=== PATIENT | female | born 1950 | race Caucasian/White ===

== ENCOUNTER 2019-11-29 14:11 | Outpatient (CLI) | payer MEDICARE, MEDICAID, SELFPAY ==
--- NOTE | 2019-11-29 | XR_ITS ---
WS: [id number] LATERAL LUMBAR SPINE: 3 view. Lateral radiographs are performed in upright neutral, flexion and extension to the patient's toleranc e. HISTORY: LOW BACK PAIN COMPARISON: None available. Normal lumbar alignment. Disc spaces and vertebral body heights are normally maintained. No instabili ty with flexion or extension. Scattered plaque in aorta. XR/XR lumbar spine f/e only [id number] IMPRESSION: No lumbar spine instability.
--- NOTE | 2019-11-29 | MR_ITS ---
WS: [id number] MRI LUMBAR SPINE NONCONTRAST HISTORY: LOW BACK PAIN COMPARISON: None available. TECHNIQUE: Sagittal and axial multisequence imaging is submitted. Slight increase in cervical lordosis and thoracic kyphosis. Normal lumbar alignment. Mild disc desiccation at L5-S1. No marrow edema or fractures. Scattered T2 and T1 bright signal intensities throughout multiple vertebral bodies are probably heman giomas. Conus terminates normally at L1-2 disc level. L1-L2: Normal. L2-L3: Normal. L3-L4: Small amount of fluid in the facet joints bilaterally. Mild asymmetric disc bulging to the LEF T without nerve root encroachment. L4-L5: Mild annular disc bulging and small amount of fluid in the facet joints. Mild narrowing of the subarticular recesses. No significant stenosis. L5-S1: Mild annular disc bulging. Small disc osteophyte complex encroaching and abutting against the RIGHT S1 nerve root in the subarticular recess. Fat is been effaced surrounding the nerve root. Minim al encroachment upon the LEFT S1 nerve root. Facet joint cyst on the RIGHT extends posteriorly measur ing 7 mm. Bilateral facet joint fluid. Spleen is enlarged as preceded described measuring 15.6 cm in length. Bilateral renal cysts. MR/MR lumbar spine wo con* [id number] IMPRESSION: 1. 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 2. Mild bilateral subarticular recess stenosis at L4-5. 3. Stable splenomegaly and bilateral renal cysts.
== END 2019-11-29 14:12 | disposition home or self-care (01) ==
LOC: RADWPI 14:23
PROVIDERS: Family Provider Registered Nurse; PCP Registered Nurse; Visit Provider Nurse Practitioner
DX: M54.5 Low back pain (principal); M48.061 Spinal stenosis, lumbar region without neurogenic claudication; Q61.02 Congenital multiple renal cysts; R16.1 Splenomegaly, not elsewhere classified
CPT/HCPCS: 72120; 72148

== ENCOUNTER 2020-09-01 14:36 | Inpatient (IN) | payer MEDICARE, MEDICAID, SELFPAY ==
[2020-09-01 14:42] VITALS: BP 131/76; PULSE 117; RESP 18; TEMP 38.1; O2SAT 93; BMI 14.1
--- NOTE | 2020-09-01 14:49 | CTR_ITS ---
PROCEDURE INFORMATION: Exam: CT Head Without Contrast Exam date and time: 09/01/2020 4:29 PM Age: 69 years old Clinical indication: Altered mental status/memory loss; Patient HX: Unable to obtain history; Additional info: AMS TECHNIQUE: Imaging protocol: Computed tomography of the head without contrast. Radiation optimization: All CT scans at this facility use at least one of these dose optimization techniques: automated exposure control; mA and/or kV adjustment per patient size (includes targeted exams where dose is matched to clinical indication); or iterative reconstruction. COMPARISON: No relevant prior studies available. RADIATION DOSE METRICS: Total DLP (mGy-cm): 1434.05 FINDINGS: Brain: Mild parenchymal volume loss noted. There is decreased attenuation of the periventricular white matter, consistent with mild microangiopathic chronic white matter disease. No intracranial hemorrhage noted. No parenchymal edema identified. Cerebral ventricles: The ventricles are proportional to the sulci. No hydrocephalus is noted. Bones/joints: No fracture or other acute osseous abnormality. Paranasal sinuses: The paranasal sinuses, as demonstrated, appear clear. Mastoid air cells: The mastoid air cells are clear bilaterally. Soft tissues: The soft tissues appear unremarkable. CT/CT head wo con* [id number] IMPRESSION: No acute intracranial abnormality demonstrated. Radiation Dose CTDIVOL = (mGy): DLP = 1434.05 (mGy-cm)
--- NOTE | 2020-09-01 14:53 | ECG_ITS ---
[facility] Test Date: 2020-09-01 Pat Name: Maddy Crowley Department: Room: Gender: Female [employer]: : 1950 Requested By: Joseph Husain Order Number: [id number] Reading MD: LORI DU Measurements Intervals [place]s Rate: 123 P: 91 ID: [id number] QRS: 82 QRSD: 65 T: 74 QT: 355 QTc: 508 Interpretive Statements SINUS TACHYCARDIA WITH OCCASIONAL VENTRICULAR PREMATURE COMPLEXES VOLTAGE CRITERIA FOR LVH [MEETS CRITERIA IN ONE OF: R(aVL), S(V1), R(V5), R(V5/V6)+S(V1)] POSSIBLE SEPTAL MYOCARDIAL INFARCTION , OF INDETERMINATE AGE [30 ms Q WAVE IN V1/V2] No previous ECG available for comparison Electronically Signed On 09-01-2020 19:28:01 [employer] by LORI DU [email or web address]
--- NOTE | 2020-09-01 14:54 | W.ED.AMS ---
Documented by User: Joseph Aguirre DO 09/02/20 10:58 HPI - Altered Mental Status General: Chief Complaint: Seizure Stated Complaint: AMS/ SEIZURE LAST NIGHT Time Seen by Provider: 09/01/20 14:38 History of Present Illness: HPI narrative: 69-year-old female who presents to the emergency room with complaint of altered mental status. Family found her at home she was unresponsive curled in a position she does not respond to any verbal commands to me. She did not respond any questions from myself or the nursing staff. EMS said she was in a similar way states curled up in a position while being transported. She is prescribed Xanax and an antidepressant but also takes Dilaudid and several other medications that are not prescribed to her. She appears to be under the influence. MD complaint: altered mental status, confusion and decreased responsiveness Onset (ago): unknown Timing confirmed by: family member Severity: severe Consistency of symptoms: Constant Context: drug abuse and history of similar presentation Review of Systems General: Reports: ROS unobtainable due to medical condition PFSH ED PFSH: Medical History (Updated 09/01/20 @ 22:30 by Serjio Caldera MD) Anxiety Chronic pain disorder Emphysema/COPD Enrolled in chronic care management Essential hypertension Neuropathy Surgical History (Updated 09/01/20 @ 22:24 by Serjio Caldera MD) Hx of appendectomy Hx of tonsillectomy Hx of tubal ligation Social History Smoking and tobacco status: current every day smoker Alcohol intake: never Lives independently: No Physical Exam Const: COMMON NORMALS: no acute distress GENERAL APPEARANCE: cooperative and comfortable HENMT: COMMON NORMALS: normocephalic, atraumatic and hearing grossly normal bilaterally HEAD & SCALP: normocephalic and atraumatic Eye: COMMON NORMALS: Equal, round and reactive pupils present, EOMs intact bilaterally, conjunctivae normal and no scleral icterus CONJUNCTIVA: Yes conjunctivae normal PUPIL: Yes Equal, round and reactive pupils present Neck/C-Spine: COMMON NORMALS: no JVD Resp: COMMON NORMALS: normal respiratory effort, No retractions, No use of accessory muscles and clear to auscultation bilaterally AUSCULTATION: clear to auscultation bilaterally Cardio: COMMON NORMALS: no JVD, regular rate, regular rhythm and No murmurs present (Cardio) RATE: regular rate RHYTHM: regular rhythm GI: COMMON NORMALS: Soft to palpation and No hepatosplenomegaly present AUSCULTATION: Yes normoactive bowel sounds PALPATION: Yes Soft to palpation, No Tenderness to palpation present (GI), No Guarding due to palpation present (GI) and Yes No hepatosplenomegaly present Extremity: COMMON NORMALS: normal to inspection, capillary refill normal, no clubbing, cyanosis or edema, no calf tenderness and no pedal edema Skin: COMMON NORMALS: no rashes or lesions noted GENERAL SKIN EXAM: no rashes or lesions noted Course Vital Signs: Vital signs: Vital Signs Temperature 97.5 F L 09/02/20 05:00 Pulse Rate 85 09/02/20 08:40 Respiratory Rate 26 H 09/02/20 08:20 Blood Pressure 134/101 09/02/20 08:40 Pulse Oximetry 98 09/02/20 08:40 MDM - Altered Mental Status MDM Narrative: Medical decision making narrative: Patient encephalopathic on arrival. She is maintaining her airway she is still nonresponsive initial evaluation and labs ordered. Care turned over to Dr. Tolentino at change of shift. Lab Data: Labs: Lab Results 09/01/20 09/01/20 09/01/20 Range/Units 18:47 18:47 19:20 WBC (4.0-10.0) 10^3/ uL RBC (4.1-5.3) 10^6/u L Hgb (11.5-15.3) g/dL Hct (37.0-47.0) % MCV (81-99) fL MCH (28.0-34.0) pg MCHC (30.0-36.0) g/dL RDW (12.1-15.1) % Plt Count (130-400) 10^3/c mm MPV (7.4-10.4) fL Neut % (Auto) % Lymph % (Auto) % Catron % (Auto) % Eos % (Auto) % Baso % (Auto) % Neut # (Auto) (1.8-7.7) 10^3/u L Lymph # (Auto) (0.8-4.8) 10^3/u L Catron # (Auto) (0.2-0.9) 10^3/u L Eos # (Auto) (0.0-0.8) 10^3/u L Baso # (Auto) (0.0-0.1) 10^3/u L Nucleated RBC % (a uto) % Nucleated RBCs # /100WBC PT (12.1-14.9) SECO NDS INR (0.8-1.2) APTT (23.9-36.7) SECO NDS Specimen Type Sample Site ABG pH (7.35-7.45) ABG pCO2 (35-45) mmHg ABG pO2 (80.0-100.0) mmH g ABG HCO3 (22-26) mmol/L ABG Base Excess (-2.0-2.0) mmol/ L Alexis Test Hematocrit (37-47) % O2 Delivery Device O2 Liters/Min % Expansion Envelope Maker Hand ID Sodium (136-145) mmol/L Potassium (3.5-5.1) mmol/L Chloride (98-107) mmol/L Carbon Dioxide (22-29) mmol/L Anion Gap (5-19) BUN (8-23) mg/dL Creatinine (0.5-0.9) mg/dL GFR Calculation (90-130) mL/min Glucose (65-115) mg/dL Calculated Osmolal ity (285-295) mOsm/k g Lactic Acid (0.5-2.2) mmol/L Calcium (8.5-10.5) mg/dL Magnesium Cancelled Total Bilirubin (0.15-1.2) mg/dL AST (0-32) U/L ALT (0-33) U/L Alkaline Phosphata se (35-105) IU/L Creatine Kinase Cancelled Troponin T Baselin e (0-10) ng/L Troponin T 120 Min newtok (0-10) ng/L Delta Troponin T (0-10) ABS# Total Protein (6.6-8.7) g/dL Albumin (3.5-5.2) g/dL Globulin (1.3-4.6) g/dL Urine Color Yellow (Yellow) Urine Appearance Clear (CLEAR) Urine pH 6.5 (5-7) Ur Specific Gravit y 1.010 (1.005-1.030) Urine Protein 3+ H (Negative) Urine Glucose (UA) Norm (Normal) Urine Ketones 3+ H (Negative) Urine Blood 3+ H (Negative) Urine Nitrate Negative (Negative) Urine Bilirubin 1+ H (Negative) Urine Urobilinogen 1 H (Negative) mg/dL Ur Leukocyte [place] ase Negative (Negative) Urine RBC 5-10 H (0-2) /hpf Urine WBC 0-4 H (0-5) /hpf Ur Squamous Epith Cells 0-4 H (0-5) /hpf Amorphous Sediment Not Reportable Urine Bacteria 1+ H (NONE) /hpf Urine Mucus 3+ /hpf Salicylates (3-10) mg/dL Urine Opiates Scre en Positive H (Negative) ng/mL Acetaminophen (10-30) ug/mL Ur Barbiturates Sc reen Negative (Negative) ng/mL Ur Phencyclidine S crn Negative (Negative) ng/mL Ur Amphetamines Sc reen Negative (Negative) ng/mL U Benzodiazepines Scrn Positive H (Negative) ng/mL Urine Cocaine Scre en Negative (Negative) ng/mL U Marijuana (THC) Screen Positive H (Negative) ng/mL Ethyl Alcohol (0-10) mg/dL Influenza Type A A g (Negative) Influenza Type B A g (Negative) SARS-CoV-2 Ag (Rap id) (Negative) 09/01/20 09/01/20 09/01/20 Range/Units 19:34 19:34 19:34 WBC 4.1 (4.0-10.0) 10^3/ uL RBC 3.81 L (4.1-5.3) 10^6/u L Hgb 11.2 L (11.5-15.3) g/dL Hct 33.1 L (37.0-47.0) % MCV 86.9 (81-99) fL MCH 29.4 (28.0-34.0) pg MCHC 33.8 (30.0-36.0) g/dL RDW 13.1 (12.1-15.1) % Plt Count 92 L (130-400) 10^3/c mm MPV 10.0 (7.4-10.4) fL Neut % (Auto) 63.1 % Lymph % (Auto) 28.1 % Catron % (Auto) 8.6 % Eos % (Auto) 0.0 % Baso % (Auto) 0.0 % Neut # (Auto) 2.55 (1.8-7.7) 10^3/u L Lymph # (Auto) 1.1 (0.8-4.8) 10^3/u L Catron # (Auto) 0.4 (0.2-0.9) 10^3/u L Eos # (Auto) 0.0 (0.0-0.8) 10^3/u L Baso # (Auto) 0.0 (0.0-0.1) 10^3/u L Nucleated RBC % (a uto) 0 % Nucleated RBCs # 0.0 /100WBC PT 15.00 H (12.1-14.9) SECO NDS INR 1.15 (0.8-1.2) APTT 25.5 (23.9-36.7) SECO NDS Specimen Type Sample Site ABG pH (7.35-7.45) ABG pCO2 (35-45) mmHg ABG pO2 (80.0-100.0) mmH g ABG HCO3 (22-26) mmol/L ABG Base Excess (-2.0-2.0) mmol/ L Alexis Test Hematocrit (37-47) % O2 Delivery Device O2 Liters/Min % Expansion Envelope Maker Hand ID Sodium 141 (136-145) mmol/L Potassium 3.2 L (3.5-5.1) mmol/L Chloride 88 L (98-107) mmol/L Carbon Dioxide 39 H (22-29) mmol/L Anion Gap 17.2 (5-19) BUN 22 (8-23) mg/dL Creatinine 0.5 (0.5-0.9) mg/dL GFR Calculation 123.1 (90-130) mL/min Glucose 91 (65-115) mg/dL Calculated Osmolal ity 295 (285-295) mOsm/k g Lactic Acid (0.5-2.2) mmol/L Calcium 9.7 (8.5-10.5) mg/dL Magnesium 1.6 L Total Bilirubin 1.4 H (0.15-1.2) mg/dL AST 60 H (0-32) U/L ALT 22 (0-33) U/L Alkaline Phosphata se 56 (35-105) IU/L Creatine Kinase 438 H* Troponin T Baselin e (0-10) ng/L Troponin T 120 Min newtok (0-10) ng/L Delta Troponin T (0-10) ABS# Total Protein 7.2 (6.6-8.7) g/dL Albumin 4.6 (3.5-5.2) g/dL Globulin 2.6 (1.3-4.6) g/dL Urine Color (Yellow) Urine Appearance (CLEAR) Urine pH (5-7) Ur Specific Gravit y (1.005-1.030) Urine Protein (Negative) Urine Glucose (UA) (Normal) Urine Ketones (Negative) Urine Blood (Negative) Urine Nitrate (Negative) Urine Bilirubin (Negative) Urine Urobilinogen (Negative) mg/dL Ur Leukocyte [place] ase (Negative) Urine RBC (0-2) /hpf Urine WBC (0-5) /hpf Ur Squamous Epith Cells (0-5) /hpf Amorphous Sediment Urine Bacteria (NONE) /hpf Urine Mucus /hpf Salicylates < 0.3 L (3-10) mg/dL Urine Opiates Scre en (Negative) ng/mL Acetaminophen < 5.0 L (10-30) ug/mL Ur Barbiturates Sc reen (Negative) ng/mL Ur Phencyclidine S crn (Negative) ng/mL Ur Amphetamines Sc reen (Negative) ng/mL U Benzodiazepines Scrn (Negative) ng/mL Urine Cocaine Scre en (Negative) ng/mL U Marijuana (THC) Screen (Negative) ng/mL Ethyl Alcohol < 10 (0-10) mg/dL Influenza Type A A g (Negative) Influenza Type B A g (Negative) SARS-CoV-2 Ag (Rap id) (Negative) 09/01/20 09/01/20 09/01/20 Range/Units 19:34 19:34 19:55 WBC (4.0-10.0) 10^3/ uL RBC (4.1-5.3) 10^6/u L Hgb (11.5-15.3) g/dL Hct (37.0-47.0) % MCV (81-99) fL MCH (28.0-34.0) pg MCHC (30.0-36.0) g/dL RDW (12.1-15.1) % Plt Count (130-400) 10^3/c mm MPV (7.4-10.4) fL Neut % (Auto) % Lymph % (Auto) % Catron % (Auto) % Eos % (Auto) % Baso % (Auto) % Neut # (Auto) (1.8-7.7) 10^3/u L Lymph # (Auto) (0.8-4.8) 10^3/u L Catron # (Auto) (0.2-0.9) 10^3/u L Eos # (Auto) (0.0-0.8) 10^3/u L Baso # (Auto) (0.0-0.1) 10^3/u L Nucleated RBC % (a uto) % Nucleated RBCs # /100WBC PT (12.1-14.9) SECO NDS INR (0.8-1.2) APTT (23.9-36.7) SECO NDS Specimen Type Sample Site ABG pH (7.35-7.45) ABG pCO2 (35-45) mmHg ABG pO2 (80.0-100.0) mmH g ABG HCO3 (22-26) mmol/L ABG Base Excess (-2.0-2.0) mmol/ L Alexis Test Hematocrit (37-47) % O2 Delivery Device O2 Liters/Min % Expansion Envelope Maker Hand ID Sodium (136-145) mmol/L Potassium (3.5-5.1) mmol/L Chloride (98-107) mmol/L Carbon Dioxide (22-29) mmol/L Anion Gap (5-19) BUN (8-23) mg/dL Creatinine (0.5-0.9) mg/dL GFR Calculation (90-130) mL/min Glucose (65-115) mg/dL Calculated Osmolal ity (285-295) mOsm/k g Lactic Acid 1.7 (0.5-2.2) mmol/L Calcium (8.5-10.5) mg/dL Magnesium Total Bilirubin (0.15-1.2) mg/dL AST (0-32) U/L ALT (0-33) U/L Alkaline Phosphata se (35-105) IU/L Creatine Kinase Troponin T Baselin e 138 H* (0-10) ng/L Troponin T 120 Min newtok (0-10) ng/L Delta Troponin T (0-10) ABS# Total Protein (6.6-8.7) g/dL Albumin (3.5-5.2) g/dL Globulin (1.3-4.6) g/dL Urine Color (Yellow) Urine Appearance (CLEAR) Urine pH (5-7) Ur Specific Gravit y (1.005-1.030) Urine Protein (Negative) Urine Glucose (UA) (Normal) Urine Ketones (Negative) Urine Blood (Negative) Urine Nitrate (Negative) Urine Bilirubin (Negative) Urine Urobilinogen (Negative) mg/dL Ur Leukocyte [place] ase (Negative) Urine RBC (0-2) /hpf Urine WBC (0-5) /hpf Ur Squamous Epith Cells (0-5) /hpf Amorphous Sediment Urine Bacteria (NONE) /hpf Urine Mucus /hpf Salicylates (3-10) mg/dL Urine Opiates Scre en (Negative) ng/mL Acetaminophen (10-30) ug/mL Ur Barbiturates Sc reen (Negative) ng/mL Ur Phencyclidine S crn (Negative) ng/mL Ur Amphetamines Sc reen (Negative) ng/mL U Benzodiazepines Scrn (Negative) ng/mL Urine Cocaine Scre en (Negative) ng/mL U Marijuana (THC) Screen (Negative) ng/mL Ethyl Alcohol (0-10) mg/dL Influenza Type A A g Negative (Negative) Influenza Type B A g Negative (Negative) SARS-CoV-2 Ag (Rap id) (Negative) 09/01/20 09/01/20 09/01/20 Range/Units 19:55 21:59 22:00 WBC (4.0-10.0) 10^3/ uL RBC (4.1-5.3) 10^6/u L Hgb (11.5-15.3) g/dL Hct (37.0-47.0) % MCV (81-99) fL MCH (28.0-34.0) pg MCHC (30.0-36.0) g/dL RDW (12.1-15.1) % Plt Count (130-400) 10^3/c mm MPV (7.4-10.4) fL Neut % (Auto) % Lymph % (Auto) % Catron % (Auto) % Eos % (Auto) % Baso % (Auto) % Neut # (Auto) (1.8-7.7) 10^3/u L Lymph # (Auto) (0.8-4.8) 10^3/u L Catron # (Auto) (0.2-0.9) 10^3/u L Eos # (Auto) (0.0-0.8) 10^3/u L Baso # (Auto) (0.0-0.1) 10^3/u L Nucleated RBC % (a uto) % Nucleated RBCs # /100WBC PT (12.1-14.9) SECO NDS INR (0.8-1.2) APTT (23.9-36.7) SECO NDS Specimen Type Arterial Sample Site Brachial, right ABG pH 7.42 (7.35-7.45) ABG pCO2 49.4 H (35-45) mmHg ABG pO2 63.9 L (80.0-100.0) mmH g ABG HCO3 32.2 H (22-26) mmol/L ABG Base Excess 6.8 H (-2.0-2.0) mmol/ L Alexis Test Pos Hematocrit 31.8 L (37-47) % O2 Delivery Device Nc O2 Liters/Min 4.0 % Expansion Envelope Maker Hand ID Jlg Sodium (136-145) mmol/L Potassium (3.5-5.1) mmol/L Chloride (98-107) mmol/L Carbon Dioxide (22-29) mmol/L Anion Gap (5-19) BUN (8-23) mg/dL Creatinine (0.5-0.9) mg/dL GFR Calculation (90-130) mL/min Glucose (65-115) mg/dL Calculated Osmolal ity (285-295) mOsm/k g Lactic Acid (0.5-2.2) mmol/L Calcium (8.5-10.5) mg/dL Magnesium Total Bilirubin (0.15-1.2) mg/dL AST (0-32) U/L ALT (0-33) U/L Alkaline Phosphata se (35-105) IU/L Creatine Kinase Troponin T Baselin e (0-10) ng/L Troponin T 120 Min newtok 109.4 H (0-10) ng/L Delta Troponin T -28.6 L (0-10) ABS# Total Protein (6.6-8.7) g/dL Albumin (3.5-5.2) g/dL Globulin (1.3-4.6) g/dL Urine Color (Yellow) Urine Appearance (CLEAR) Urine pH (5-7) Ur Specific Gravit y (1.005-1.030) Urine Protein (Negative) Urine Glucose (UA) (Normal) Urine Ketones (Negative) Urine Blood (Negative) Urine Nitrate (Negative) Urine Bilirubin (Negative) Urine Urobilinogen (Negative) mg/dL Ur Leukocyte [place] ase (Negative) Urine RBC (0-2) /hpf Urine WBC (0-5) /hpf Ur Squamous Epith Cells (0-5) /hpf Amorphous Sediment Urine Bacteria (NONE) /hpf Urine Mucus /hpf Salicylates (3-10) mg/dL Urine Opiates Scre en (Negative) ng/mL Acetaminophen (10-30) ug/mL Ur Barbiturates Sc reen (Negative) ng/mL Ur Phencyclidine S crn (Negative) ng/mL Ur Amphetamines Sc reen (Negative) ng/mL U Benzodiazepines Scrn (Negative) ng/mL Urine Cocaine Scre en (Negative) ng/mL U Marijuana (THC) Screen (Negative) ng/mL Ethyl Alcohol (0-10) mg/dL Influenza Type A A g (Negative) Influenza Type B A g (Negative) SARS-CoV-2 Ag (Rap id) Negative (Negative) Discharge Plan Discharge Patient Disposition: Admitted As Inpatient Admit Provider: Serjio Caldera Clinical Impression: Acute alteration in mental status, Acute non-ST elevation myocardial infarction (NSTEMI) Aspiration pneumonia Qualifiers: Aspiration pneumonia type: unspecified Laterality: right Lung location: lower lobe of lung Qualified Code(s): J69.0 - Pneumonitis due to inhalation of food and vomit Condition: Stable Referrals: Horace Zhong FNP [Primary Care Provider] - Discharge Date/Time: 09/02/20 00:49 Sign Out Sign Out Data: Patient Sign Out occurred on 09/01/20 at 18:56. Patient's care was discussed, and care was transferred from to Estelita Soumya [facility]. Coding Level of Care Code ED Hat Lining Blocker for Chg Fwd Exam Comprehensive Documented by User: Estelita Tineo 09/01/20 22:36 HPI - Altered Mental Status General: Chief Complaint: Seizure Stated Complaint: AMS/ SEIZURE LAST NIGHT Time Seen by Provider: 09/01/20 14:38 PFSH ED PFSH: Medical History (Updated 09/01/20 @ 22:30 by Serjio Caldera MD) Anxiety Chronic pain disorder Emphysema/COPD Enrolled in chronic care management Essential hypertension Neuropathy Surgical History (Updated 09/01/20 @ 22:24 by Serjio Caldera MD) Hx of appendectomy Hx of tonsillectomy Hx of tubal ligation Social History Smoking and tobacco status: current every day smoker Alcohol intake: never Lives independently: No Course Vital Signs: Vital signs: Vital Signs Temperature 97.5 F L 09/02/20 05:00 Pulse Rate 85 09/02/20 08:40 Respiratory Rate 26 H 09/02/20 08:20 Blood Pressure 134/101 09/02/20 08:40 Pulse Oximetry 98 09/02/20 08:40 MDM - Altered Mental Status MDM Narrative: Medical decision making narrative: 1901 -patient turned over to me at change of shift from Dr. Aguirre. Please see his note for his history, physical exam medical decision-making notes. On my exam the patient is still encephalopathic. She performs purposeful movements when desired to make her self comfortable in bed but does not talk. Her GCS is 9 at this time. Vital signs are stable. We will continue with work-up set forward by Dr. Aguirre but I have added further labs, the patient apparently has a fever. 2050 -Case endorsed to Dr. Caldera. Patient's mental status is believed to be change secondary to illicit substances but there is possible aspiration on her chest x-ray and an elevation in her cardiac enzymes which could all be consistent with NSTEMI. Meningitis/encephalitis is also a possibility for her altered mental status and slight fever. Dr. Calderon wants to move forward with treating her for pneumonia and UTI and wants to hold off an LP at this time. At this time it would be very difficult to perform an LP as the patient is not cooperative and she would have to be sedated further which I am afraid would necessitating us having to put her on a ventilator to keep her still. At this time the patient is maintaining her airway with a GCS of 9. I believe when she has metabolized these medications were all she will become more alert. We have also treated her fever which should help. Further care will be dictated by Dr. Caldera. The patient does not demonstrate any sign of nuchal rigidity or meningismus at this time. Lab Data: Attestation: I reviewed the patient's lab results. Labs: Lab Results 09/01/20 09/01/20 09/01/20 Range/Units 18:47 18:47 19:20 WBC (4.0-10.0) 10^3/ uL RBC (4.1-5.3) 10^6/u L Hgb (11.5-15.3) g/dL Hct (37.0-47.0) % MCV (81-99) fL MCH (28.0-34.0) pg MCHC (30.0-36.0) g/dL RDW (12.1-15.1) % Plt Count (130-400) 10^3/c mm MPV (7.4-10.4) fL Neut % (Auto) % Lymph % (Auto) % Catron % (Auto) % Eos % (Auto) % Baso % (Auto) % Neut # (Auto) (1.8-7.7) 10^3/u L Lymph # (Auto) (0.8-4.8) 10^3/u L Catron # (Auto) (0.2-0.9) 10^3/u L Eos # (Auto) (0.0-0.8) 10^3/u L Baso # (Auto) (0.0-0.1) 10^3/u L Nucleated RBC % (a uto) % Nucleated RBCs # /100WBC PT (12.1-14.9) SECO NDS INR (0.8-1.2) APTT (23.9-36.7) SECO NDS Specimen Type Sample Site ABG pH (7.35-7.45) ABG pCO2 (35-45) mmHg ABG pO2 (80.0-100.0) mmH g ABG HCO3 (22-26) mmol/L ABG Base Excess (-2.0-2.0) mmol/ L Alexis Test Hematocrit (37-47) % O2 Delivery Device O2 Liters/Min % Expansion Envelope Maker Hand ID Sodium (136-145) mmol/L Potassium (3.5-5.1) mmol/L Chloride (98-107) mmol/L Carbon Dioxide (22-29) mmol/L Anion Gap (5-19) BUN (8-23) mg/dL Creatinine (0.5-0.9) mg/dL GFR Calculation (90-130) mL/min Glucose (65-115) mg/dL Calculated Osmolal ity (285-295) mOsm/k g Lactic Acid (0.5-2.2) mmol/L Calcium (8.5-10.5) mg/dL Magnesium Cancelled Total Bilirubin (0.15-1.2) mg/dL AST (0-32) U/L ALT (0-33) U/L Alkaline Phosphata se (35-105) IU/L Creatine Kinase Cancelled Troponin T Baselin e (0-10) ng/L Troponin T 120 Min newtok (0-10) ng/L Delta Troponin T (0-10) ABS# Total Protein (6.6-8.7) g/dL Albumin (3.5-5.2) g/dL Globulin (1.3-4.6) g/dL Urine Color Yellow (Yellow) Urine Appearance Clear (CLEAR) Urine pH 6.5 (5-7) Ur Specific Gravit y 1.010 (1.005-1.030) Urine Protein 3+ H (Negative) Urine Glucose (UA) Norm (Normal) Urine Ketones 3+ H (Negative) Urine Blood 3+ H (Negative) Urine Nitrate Negative (Negative) Urine Bilirubin 1+ H (Negative) Urine Urobilinogen 1 H (Negative) mg/dL Ur Leukocyte [place] ase Negative (Negative) Urine RBC 5-10 H (0-2) /hpf Urine WBC 0-4 H (0-5) /hpf Ur Squamous Epith Cells 0-4 H (0-5) /hpf Amorphous Sediment Not Reportable Urine Bacteria 1+ H (NONE) /hpf Urine Mucus 3+ /hpf Salicylates (3-10) mg/dL Urine Opiates Scre en Positive H (Negative) ng/mL Acetaminophen (10-30) ug/mL Ur Barbiturates Sc reen Negative (Negative) ng/mL Ur Phencyclidine S crn Negative (Negative) ng/mL Ur Amphetamines Sc reen Negative (Negative) ng/mL U Benzodiazepines Scrn Positive H (Negative) ng/mL Urine Cocaine Scre en Negative (Negative) ng/mL U Marijuana (THC) Screen Positive H (Negative) ng/mL Ethyl Alcohol (0-10) mg/dL Influenza Type A A g (Negative) Influenza Type B A g (Negative) SARS-CoV-2 Ag (Rap id) (Negative) 09/01/20 09/01/20 09/01/20 Range/Units 19:34 19:34 19:34 WBC 4.1 (4.0-10.0) 10^3/ uL RBC 3.81 L (4.1-5.3) 10^6/u L Hgb 11.2 L (11.5-15.3) g/dL Hct 33.1 L (37.0-47.0) % MCV 86.9 (81-99) fL MCH 29.4 (28.0-34.0) pg MCHC 33.8 (30.0-36.0) g/dL RDW 13.1 (12.1-15.1) % Plt Count 92 L (130-400) 10^3/c mm MPV 10.0 (7.4-10.4) fL Neut % (Auto) 63.1 % Lymph % (Auto) 28.1 % Catron % (Auto) 8.6 % Eos % (Auto) 0.0 % Baso % (Auto) 0.0 % Neut # (Auto) 2.55 (1.8-7.7) 10^3/u L Lymph # (Auto) 1.1 (0.8-4.8) 10^3/u L Catron # (Auto) 0.4 (0.2-0.9) 10^3/u L Eos # (Auto) 0.0 (0.0-0.8) 10^3/u L Baso # (Auto) 0.0 (0.0-0.1) 10^3/u L Nucleated RBC % (a uto) 0 % Nucleated RBCs # 0.0 /100WBC PT 15.00 H (12.1-14.9) SECO NDS INR 1.15 (0.8-1.2) APTT 25.5 (23.9-36.7) SECO NDS Specimen Type Sample Site ABG pH (7.35-7.45) ABG pCO2 (35-45) mmHg ABG pO2 (80.0-100.0) mmH g ABG HCO3 (22-26) mmol/L ABG Base Excess (-2.0-2.0) mmol/ L Alexis Test Hematocrit (37-47) % O2 Delivery Device O2 Liters/Min % Expansion Envelope Maker Hand ID Sodium 141 (136-145) mmol/L Potassium 3.2 L (3.5-5.1) mmol/L Chloride 88 L (98-107) mmol/L Carbon Dioxide 39 H (22-29) mmol/L Anion Gap 17.2 (5-19) BUN 22 (8-23) mg/dL Creatinine 0.5 (0.5-0.9) mg/dL GFR Calculation 123.1 (90-130) mL/min Glucose 91 (65-115) mg/dL Calculated Osmolal ity 295 (285-295) mOsm/k g Lactic Acid (0.5-2.2) mmol/L Calcium 9.7 (8.5-10.5) mg/dL Magnesium 1.6 L Total Bilirubin 1.4 H (0.15-1.2) mg/dL AST 60 H (0-32) U/L ALT 22 (0-33) U/L Alkaline Phosphata se 56 (35-105) IU/L Creatine Kinase 438 H* Troponin T Baselin e (0-10) ng/L Troponin T 120 Min newtok (0-10) ng/L Delta Troponin T (0-10) ABS# Total Protein 7.2 (6.6-8.7) g/dL Albumin 4.6 (3.5-5.2) g/dL Globulin 2.6 (1.3-4.6) g/dL Urine Color (Yellow) Urine Appearance (CLEAR) Urine pH (5-7) Ur Specific Gravit y (1.005-1.030) Urine Protein (Negative) Urine Glucose (UA) (Normal) Urine Ketones (Negative) Urine Blood (Negative) Urine Nitrate (Negative) Urine Bilirubin (Negative) Urine Urobilinogen (Negative) mg/dL Ur Leukocyte [place] ase (Negative) Urine RBC (0-2) /hpf Urine WBC (0-5) /hpf Ur Squamous Epith Cells (0-5) /hpf Amorphous Sediment Urine Bacteria (NONE) /hpf Urine Mucus /hpf Salicylates < 0.3 L (3-10) mg/dL Urine Opiates Scre en (Negative) ng/mL Acetaminophen < 5.0 L (10-30) ug/mL Ur Barbiturates Sc reen (Negative) ng/mL Ur Phencyclidine S crn (Negative) ng/mL Ur Amphetamines Sc reen (Negative) ng/mL U Benzodiazepines Scrn (Negative) ng/mL Urine Cocaine Scre en (Negative) ng/mL U Marijuana (THC) Screen (Negative) ng/mL Ethyl Alcohol < 10 (0-10) mg/dL Influenza Type A A g (Negative) Influenza Type B A g (Negative) SARS-CoV-2 Ag (Rap id) (Negative) 09/01/20 09/01/20 09/01/20 Range/Units 19:34 19:34 19:55 WBC (4.0-10.0) 10^3/ uL RBC (4.1-5.3) 10^6/u L Hgb (11.5-15.3) g/dL Hct (37.0-47.0) % MCV (81-99) fL MCH (28.0-34.0) pg MCHC (30.0-36.0) g/dL RDW (12.1-15.1) % Plt Count (130-400) 10^3/c mm MPV (7.4-10.4) fL Neut % (Auto) % Lymph % (Auto) % Catron % (Auto) % Eos % (Auto) % Baso % (Auto) % Neut # (Auto) (1.8-7.7) 10^3/u L Lymph # (Auto) (0.8-4.8) 10^3/u L Catron # (Auto) (0.2-0.9) 10^3/u L Eos # (Auto) (0.0-0.8) 10^3/u L Baso # (Auto) (0.0-0.1) 10^3/u L Nucleated RBC % (a uto) % Nucleated RBCs # /100WBC PT (12.1-14.9) SECO NDS INR (0.8-1.2) APTT (23.9-36.7) SECO NDS Specimen Type Sample Site ABG pH (7.35-7.45) ABG pCO2 (35-45) mmHg ABG pO2 (80.0-100.0) mmH g ABG HCO3 (22-26) mmol/L ABG Base Excess (-2.0-2.0) mmol/ L Alexis Test Hematocrit (37-47) % O2 Delivery Device O2 Liters/Min % Expansion Envelope Maker Hand ID Sodium (136-145) mmol/L Potassium (3.5-5.1) mmol/L Chloride (98-107) mmol/L Carbon Dioxide (22-29) mmol/L Anion Gap (5-19) BUN (8-23) mg/dL Creatinine (0.5-0.9) mg/dL GFR Calculation (90-130) mL/min Glucose (65-115) mg/dL Calculated Osmolal ity (285-295) mOsm/k g Lactic Acid 1.7 (0.5-2.2) mmol/L Calcium (8.5-10.5) mg/dL Magnesium Total Bilirubin (0.15-1.2) mg/dL AST (0-32) U/L ALT (0-33) U/L Alkaline Phosphata se (35-105) IU/L Creatine Kinase Troponin T Baselin e 138 H* (0-10) ng/L Troponin T 120 Min [place]tok (0-10) ng/L Delta Troponin T (0-10) ABS# Total Protein (6.6-8.7) g/dL Albumin (3.5-5.2) g/dL Globulin (1.3-4.6) g/dL Urine Color (Yellow) Urine Appearance (CLEAR) Urine pH (5-7) Ur Specific Gravit y (1.005-1.030) Urine Protein (Negative) Urine Glucose (UA) (Normal) Urine Ketones (Negative) Urine Blood (Negative) Urine Nitrate (Negative) Urine Bilirubin (Negative) Urine Urobilinogen (Negative) mg/dL Ur Leukocyte [place]oreto ase (Negative) Urine RBC (0-2) /hpf Urine WBC (0-5) /hpf Ur Squamous Epith Cells (0-5) /hpf Amorphous Sediment Urine Bacteria (NONE) /hpf Urine Mucus /hpf Salicylates (3-10) mg/dL Urine Opiates Scre en (Negative) ng/mL Acetaminophen (10-30) ug/mL Ur Barbiturates Sc reen (Negative) ng/mL Ur Phencyclidine S crn (Negative) ng/mL Ur Amphetamines Sc reen (Negative) ng/mL U Benzodiazepines Scrn (Negative) ng/mL Urine Cocaine Scre en (Negative) ng/mL U Marijuana (THC) Screen (Negative) ng/mL Ethyl Alcohol (0-10) mg/dL Influenza Type A A g Negative (Negative) Influenza Type B A g Negative (Negative) SARS-CoV-2 Ag (Rap id) (Negative) 09/01/20 09/01/20 09/01/20 Range/Units 19:55 21:59 22:00 WBC (4.0-10.0) 10^3/ uL RBC (4.1-5.3) 10^6/u L Hgb (11.5-15.3) g/dL Hct (37.0-47.0) % MCV (81-99) fL MCH (28.0-34.0) pg MCHC (30.0-36.0) g/dL RDW (12.1-15.1) % Plt Count (130-400) 10^3/c mm MPV (7.4-10.4) fL Neut % (Auto) % Lymph % (Auto) % Catron % (Auto) % Eos % (Auto) % Baso % (Auto) % Neut # (Auto) (1.8-7.7) 10^3/u L Lymph # (Auto) (0.8-4.8) 10^3/u L Catron # (Auto) (0.2-0.9) 10^3/u L Eos # (Auto) (0.0-0.8) 10^3/u L Baso # (Auto) (0.0-0.1) 10^3/u L Nucleated RBC % (a uto) % Nucleated RBCs # /100WBC PT (12.1-14.9) SECO NDS INR (0.8-1.2) APTT (23.9-36.7) SECO NDS Specimen Type Arterial Sample Site Brachial, right ABG pH 7.42 (7.35-7.45) ABG pCO2 49.4 H (35-45) mmHg ABG pO2 63.9 L (80.0-100.0) mmH g ABG HCO3 32.2 H (22-26) mmol/L ABG Base Excess 6.8 H (-2.0-2.0) mmol/ L Alexis Test Pos Hematocrit 31.8 L (37-47) % O2 Delivery Device Nc O2 Liters/Min 4.0 % Expansion Envelope Maker Hand ID [id number] Sodium (136-145) mmol/L Potassium (3.5-5.1) mmol/L Chloride (98-107) mmol/L Carbon Dioxide (22-29) mmol/L Anion Gap (5-19) BUN (8-23) mg/dL Creatinine (0.5-0.9) mg/dL GFR Calculation (90-130) mL/min Glucose (65-115) mg/dL Calculated Osmolal ity (285-295) mOsm/k g Lactic Acid (0.5-2.2) mmol/L Calcium (8.5-10.5) mg/dL Magnesium Total Bilirubin (0.15-1.2) mg/dL AST (0-32) U/L ALT (0-33) U/L Alkaline Phosphata se (35-105) IU/L Creatine Kinase Troponin T Baselin e (0-10) ng/L Troponin T 120 Min newtok 109.4 H (0-10) ng/L Delta Troponin T -28.6 L (0-10) ABS# Total Protein (6.6-8.7) g/dL Albumin (3.5-5.2) g/dL Globulin (1.3-4.6) g/dL Urine Color (Yellow) Urine Appearance (CLEAR) Urine pH (5-7) Ur Specific Gravit y (1.005-1.030) Urine Protein (Negative) Urine Glucose (UA) (Normal) Urine Ketones (Negative) Urine Blood (Negative) Urine Nitrate (Negative) Urine Bilirubin (Negative) Urine Urobilinogen (Negative) mg/dL Ur Leukocyte Loreto ase (Negative) Urine RBC (0-2) /hpf Urine WBC (0-5) /hpf Ur Squamous Epith Cells (0-5) /hpf Amorphous Sediment Urine Bacteria (NONE) /hpf Urine Mucus /hpf Salicylates (3-10) mg/dL Urine Opiates Scre en (Negative) ng/mL Acetaminophen (10-30) ug/mL Ur Barbiturates Sc reen (Negative) ng/mL Ur Phencyclidine S crn (Negative) ng/mL Ur Amphetamines Sc reen (Negative) ng/mL U Benzodiazepines Scrn (Negative) ng/mL Urine Cocaine Scre en (Negative) ng/mL U Marijuana (THC) Screen (Negative) ng/mL Ethyl Alcohol (0-10) mg/dL Influenza Type A A g (Negative) Influenza Type B A g (Negative) SARS-CoV-2 Ag (Rap id) Negative (Negative) Imaging Data^: CXR: Attestation: I personally reviewed and interpreted this imaging study as follows: My impression: Probable right lower lobe infiltrate EKG Data^: EKG 1: Attestation: I personally reviewed and interpreted this EKG as follows: EKG interpretation date: 09/01/20 EKG interpretation time: 15:26 Interpretation: Sinus tachycardia at 123 beats a minute, normal axis, no blocks, normal intervals, nonspecific ST and T wave changes, extensive baseline artifact present. LVH. Discharge Plan Discharge Patient Disposition: Admitted As Inpatient Admit Provider: Serjio Caldera Clinical Impression: Acute alteration in mental status, Acute non-ST elevation myocardial infarction (NSTEMI) Aspiration pneumonia Qualifiers: Aspiration pneumonia type: unspecified Laterality: right Lung location: lower lobe of lung Qualified Code(s): J69.0 - Pneumonitis due to inhalation of food and vomit Condition: Stable Referrals: Horace Zhong FNP [Primary Care Provider] - Discharge Date/Time: 09/02/20 00:49 Sign Out Sign Out Data: Patient Sign Out occurred on 09/01/20 at 18:56. Patient's care was discussed, and care was transferred from to [facility]. Coding Level of Care Code ED Hat Lining Blocker for g Fwd Exam Comprehensive
[2020-09-01] MEDS: LORazepam 2 mg/mL INJ 1 mL IM ×2 (17:55→18:31)
[2020-09-01 18:56] LABS: Add Urine Microscopic? YES; Bilirubin Urine 1+ (Negative); Blood Urine 3+ (Negative); Glucose Urine UA Norm (Normal); Ketones Urine 3+ (Negative); Leukocyte Esterase Urine Negative (Negative); Nitrate Urine Negative (Negative); Protein Urine 3+ (Negative); Urine Appearance Clear (CLEAR); Urine Color Yellow (Yellow); Urobilinogen Urine 1 mg/dL (Negative); pH Urine 6.5 (5-7)
[2020-09-01 19:03] LABS: Amphetamines Screen Urine Negative (Negative); Barbiturates Screen Urine Negative (Negative); Benzodiazepines Screen Urine Positive (Negative); Cocaine Screen Urine Negative (Negative); Opiate Screen Urine Positive (Negative); PCP Screen Urine Negative (Negative); THC Screen Urine Positive (Negative)
[2020-09-01 19:04] LABS: Bacteria Urine 1+ /hpf; Mucus Urine 3+ /hpf; Squamous Epithelial Cell Urine 0-4 /hpf (0-5); WBC Urine 0-4 /hpf (0-5)
[2020-09-01 19:05] LABS: Add Urine Culture? Yes
[2020-09-01 19:35] VITALS: BP 149/92; PULSE 131; RESP 29; O2SAT 98
[2020-09-01] MEDS: sodium chloride 0.9% 1,000 ML 999 ML IV ×2 (19:39→21:29)
[2020-09-01 19:46] LABS: Hematocrit 33.1 % (37.0-47.0); Hemoglobin 11.2 g/dL (11.5-15.3); Lymphocytes # 1.1 10^3/uL (0.8-4.8); Lymphocytes % 28.1 %; Mean Corpuscular HGB Conc 33.8 g/dL (30.0-36.0); Mean Corpuscular Hemoglobin 29.4 pg (28.0-34.0); Mean Corpuscular Volume 86.9 fL (81-99); Monocytes # 0.4 10^3/uL (0.2-0.9); Monocytes % 8.6 %; Neutrophils # 2.55 10^3/uL (1.8-7.7); Neutrophils % 63.1 %; Nucleated Red Blood Cells % 0 %; Platelet Count 92 10^3/cmm (130-400); Red Blood Count 3.81 10^6/uL (4.1-5.3); Red Cell Distribution Width 13.1 % (12.1-15.1); White Blood Count 4.1 10^3/uL (4.0-10.0)
[2020-09-01 20:00] LABS: INR 1.15 (0.8-1.2)
[2020-09-01 20:01] LABS: Partial Thromboplastin Time 25.5 SECONDS (23.9-36.7)
[2020-09-01 20:04] LABS: Alanine Aminotransferase 22 U/L (0-33); Albumin Level 4.6 g/dL (3.5-5.2); Alkaline Phosphatase 56 IU/L (35-105); Anion Gap 17.2 (5-19); Aspartate Amino Transferase 60 U/L (0-32); Blood Urea Nitrogen 22 mg/dL (8-23); Calcium 9.7 mg/dL (8.5-10.5); Carbon Dioxide 39 mmol/L (22-29); Chloride 88 mmol/L (98-107); Creatinine Clr Calc Pharmacy 39.0904; Globulin 2.6 g/dL (1.3-4.6); Glomerular Filtration Rate 123.1 mL/min (90-130); Glucose 91 mg/dL (65-115); Magnesium 1.6 mg/dL (1.7-2.3); Osmolality Calculated 295 mOsm/kg (285-295); Potassium 3.2 mmol/L (3.5-5.1); Sodium 141 mmol/L (136-145); Total Bilirubin 1.4 mg/dL (0.15-1.2); Total Protein 7.2 g/dL (6.6-8.7)
[2020-09-01 20:05] LABS: Lactic Sepsis W/Reflex 1.7 mmol/L (0.5-2.2)
[2020-09-01 20:09] LABS: Acetaminophen < 5.0 ug/mL (10-30); Alcohol Level < 10 mg/dL (0-10); Creatine Phosphokinase 438 U/L (26-192); Salicylate < 0.3 mg/dL (3-10); Troponin(5th) Baseline 138 ng/L (0-10)
[2020-09-01 20:21] LABS: Influenza A by IFA Negative (Negative); Influenza B by IFA Negative (Negative); SARS Covid-2 Antigen Negative (Negative)
--- NOTE | 2020-09-01 20:47 | XRR_ITS ---
PROCEDURE INFORMATION: Exam: XR Chest, 1 View Exam date and time: 09/01/2020 9:13 PM Age: 69 years old Clinical indication: Other: AMS; Patient HX: Seizure 1 day ago, unable to obtain history TECHNIQUE: Imaging protocol: XR of the chest Views: 1 view. COMPARISON: No relevant prior studies available. FINDINGS: Lungs: Severe COPD. Mild infiltrates in the right lower lung. Pleural space: Unremarkable. No pleural effusion. No pneumothorax. Heart/Mediastinum: Unremarkable. No cardiomegaly. Bones/joints: Unremarkable. XR/XR chest 1V portable [id number] IMPRESSION: Severe COPD. Mild infiltrates in the right lower lung.
[2020-09-01] MEDS: aspirin 300 mg Supp PR (22:13)
[2020-09-01] MEDS: magnesium sulfate premix 2 GM/50 ML PIGGYBACK IV (22:13)
--- NOTE | 2020-09-01 22:15 | P.HP_ITS ---
Providers/Chief Complaint Primary Care Provider: ARRON Alvarez Chief Complaint: AMS/ SEIZURE LAST NIGHT History of Present Illness Maddy Crowley is a 69 year old female with a past medical history of COPD, on 2 L, chronic pain on intermittent narcotics, history of drug abuse in the past, active smoker, chronic malnutrition, cachexia, chronic thrombocytopenia, who presents to [facility] due to altered mental status. Currently patient is alert, she does not follow commands, is confused, does not answer questions appropriately. Most of the history was obtained by patient is next of kin Mykel, Mykel tells me that he is a friend, who takes care of her, patient at baseline is alert oriented x3, can carry out conversations, she has been losing a lot of weight recently, has remained in bed at times, she refuses to go up to use the bathroom, she urinates in a bucket at bedside, she has chronic pain, recently she had a falling out with pain management in [place], it stopped giving her pain medications, he tells me that she was not on a lot of medications, was intermittently on p.o. morphine for short period of time, she continues to smoke, is on 2 L for COPD, she is dependent on Mykel to help her out with activities of daily living, he tells me that she has not had any fevers, any chills, has a chronic cough, no increase complaints of shortness of breath, no known exposure to COVID-19. He tells me that last night she had 3 seizures, sounds like grand mal seizures, she was shaking all over, has does not have a history of seizures in the past, she went to bed after, woke up this morning it was confused, just was not answer question appropriately, could not recognize him, so he brought her to the emergency room. Unable to obtain surgical history due to altered mental status. Unable to obtain medical history due to altered mental status. Unable to determine family history due to altered mental status. Review of Systems General: Reports: ROS unobtainable due to medical condition Medications/Allergies Home Medications Medication Instructions Recorded Confirmed Last Taken Type sumatriptan succinate 50 mg tablet 50 mg PO Q2H PRN #15 tab 12/01/19 09/01/20 Unknown Rx albuterol sulfate 90 mcg/actuation 2 puff INHALATION Q6H PRN #6.7 gm 06/29/20 09/01/20 Unknown Rx aerosol inhaler cetirizine 10 mg tablet 10 mg PO DAILY PRN #30 tab 06/29/20 09/01/20 Unknown Rx metoprolol tartrate 25 mg tablet 25 mg PO BID 30 Days #60 tab 06/29/20 09/01/20 Unknown Rx cyproheptadine 4 mg tablet 4 mg PO BID #60 tab 06/30/20 09/01/20 Unknown Rx Allergies Allergy/AdvReac Type Severity Reaction Status Date / Time cephalexin Allergy Unknown Verified 09/01/20 15:02 Sulfa (Sulfonamide Allergy Unknown Verified 09/01/20 15:02 Antibiotics) PFSH Acute PFSH: Medical History Anxiety Emphysema/COPD Surgical History (Updated 09/01/20 @ 22:24 by Serjio Caldera MD) Hx of appendectomy Hx of tonsillectomy Hx of tubal ligation Social History Smoking and tobacco status: current every day smoker Alcohol intake: never Lives independently: No Vitals/I&O/Wt Last Vital Signs Temp 100.5 F H 09/01/20 14:42 Pulse 131 H 09/01/20 19:35 Resp 29 H 09/01/20 19:35 BP 149/92 09/01/20 19:35 Pulse Ox 98 09/01/20 19:35 09/01/20 09/01/20 09/01/20 06:59 14:59 22:59 Intake Total 1350 / 1350 Balance 1350 / 1350 Weight last 48 hrs Weight 36.287 kg Physical Exam Const: GENERAL APPEARANCE: combative and disheveled NUTRITIONAL APPEARANCE: underweight ORIENTATION/CONSCIOUSNESS: Yes awake and Yes confused; not oriented to person, not oriented to place and not oriented to time HENMT: OTHER: Has a bruise over her left brow Lymph: LYMPHATIC: no lymphadenopathy noted Chest: COMMONS NORMALS: normal inspection of the chest Resp: COMMON NORMALS: normal respiratory effort, No retractions, No use of accessory muscles and clear to auscultation bilaterally AUSCULTATION: clear to auscultation bilaterally Cardio: COMMON NORMALS: no JVD, regular rhythm, S1 normal heart sound present and S2 normal heart sound present RATE: tachycardic GI: COMMON NORMALS: Normal to inspection, nondistended, normoactive bowel sounds present, Soft to palpation and non-tender Extremity: COMMON NORMALS: normal to inspection, full ROM, capillary refill normal and no joint enlargement Neuro: OTHER: Does not follow neurologic examination, she opens her eyes, fights nursing staff when blood is drawn, can sit up in bed, moving all her extremities Data : 09/01/20 19:34 09/01/20 19:34 Micro: Microbiology 09/01/20 19:34 Blood Culture - Preliminary Blood SPECIMEN COLLECTED 09/01/20 19:34 Blood Culture - Preliminary Blood SPECIMEN COLLECTED A&P Assessment and plan (1) Septic encephalopathy: -Secondary to UTI, right middle lobe pneumonia -Rapid Covid negative, influenza negative -On 4 L, ABG shows pH 7.42, PCO2 49.4, PO2 63.9 -WBC 4.1, hemoglobin 11.2, platelet count 92, CK 438 PLAN: -Admit to ICU -IV normal saline 100 cc an hour -Solu-Medrol, albuterol, Advair, Primaxin for respiratory failure secondary to aspiration pneumonia, COPD -Primaxin for antibiotic coverage, will cover for UTI and aspiration pneumonia -Covid PCR, Covid precautions -Monitor hemodynamics, -Currently full code -Lovenox for DVT prophylaxis Status: Acute (2) UTI (urinary tract infection): Status: Acute (3) Aspiration pneumonia: Status: Acute (4) Acute non-ST elevation myocardial infarction (NSTEMI): No known cardiovascular disease No known complaints of chest pain Baseline troponin I 138 EKG shows sinus tachycardia, no acute ST-T wave changes PLAN; -Telemetry monitoring -Serial EKGs, serial troponins -Aspirin 81 mg, atorvastatin 40 mg, metoprolol -Order cardiac echocardiogram -Therapeutic Lovenox Status: Acute (5) Heavy cigarette smoker: Status: Acute (6) Narcotic abuse, continuous: Status: Acute (7) Chronically ill: Status: Acute (8) Anxiety: Status: Acute (9) Emphysema/COPD: Status: Acute (10) Caloric malnutrition: Status: Acute (11) Sinus tachycardia: Status: Acute (12) Acute respiratory failure: Status: Acute (13) Grand mal seizure: CT head no acute findings, neurochecks, aspiration precautions, Keppra 750 twice daily Status: Acute (14) Thrombocytopenia: -Etiology unclear, platelet count 92, chronic thrombocytopenia -Order right upper quadrant ultrasound, hepatitis panel, blood alcohol Status: Acute Attestations Medical Necessity Statement*: Patient course hospitalization for septic encephalopathy secondary to UTI, right middle lobe pneumonia Coding Level of Care Code Acute Color Grinder for [facility] Fwd Diagnoses Septic encephalopathy G93.41 UTI (urinary tract infection) N39.0 Aspiration pneumonia J69.0 Acute non-ST elevation myocardial infarction (NSTEMI) I21.4 Heavy cigarette smoker F17.210 Narcotic abuse, continuous F11.10 Chronically ill R69 Anxiety F41.9 Emphysema/COPD J43.9 Caloric malnutrition E46 Sinus tachycardia R00.0 Acute respiratory failure J96.00 Grand mal seizure G40.409 Thrombocytopenia D69.6
[2020-09-01 22:16] LABS: ABG PCO2 49.4 mmHg (35-45); ABG PH Result 7.42 (7.35-7.45); Arterial Blood Gas Hematocrit 31.8 % (37-47); Base Excess ABG 6.8 mmol/L (-2.0-2.0); Blood Gas Allen Test Pos; Blood Gas Sample Site Brachial, right; Blood Gas Sample Type Arterial; HCO3 ABG 32.2 mmol/L (22-26); Oxygen Device NC; PO2 ABG 63.9 mmHg (80.0-100.0)
[2020-09-01 22:18] VITALS: BP 131/99; PULSE 124; O2SAT 96
--- NOTE | 2020-09-01 22:22 | PC.NURSE ---
PATIENT DAUGHTER CALLED AND STATED THAT SHE WANTED TO TAKE HER MOTHER TO [facility] FOR TREATMENT AND WOULD COME GET HER IF WOULD NOT TRANSFER PATIENT. CHARGE NURSE AND HCP INFORMED OF DAUGHTERS STATEMENTS TO NURSE.
[2020-09-01] MEDS: potassium chloride premix 100 ML 25 MEQ IV (23:21)
[2020-09-01] MEDS: sodium chloride 0.9% 1,000 ML 100 ML IV (23:21)
[2020-09-01 23:22] VITALS: PULSE 130; O2SAT 99
[2020-09-01 23:41] LABS: Troponin 5 2HR 109.4 ng/L (0-10); Troponin 5 2HR Delta -28.6 ABS# (0-10)
[2020-09-02] VITALS (109 sets, daily range): BP systolic 122–161; BP diastolic 65–122; PULSE 60–145; RESP 15–37; TEMP 36.4–37.3; O2SAT 45–100
--- NOTE | 2020-09-02 01:47 | USCV_ITS ---
Maddy Crowley Age: 69 Gender: F : 1950 Exam Date: 09/02/2020 10:41 Ordering Phys: Serjio Caldera MD Technologist: Hue Skinner Exam Location: [facility] – [place] Indication: Elevated troponin BP: 139 / 83 HR: 88 Rhythm: Sinus Technical Quality: Technically difficult study MEASUREMENTS (Male / Female) Normal Values 2D ECHO LV Chamber Size 3.0 cm RV Chamber Size 1.8 cm LA Diameter 3.0 cm LA Width 3.7 cm LA Height 3.5 cm RA Width 2.5 cm RA Height 3.2 cm M-MODE LV Diastolic Diameter MM 4.7 cm 4.2 - 5.9 / 3.9 - 5.3 cm LV Systolic Diameter MM 3.1 cm LV Ejection Fraction MM Teich 61.7 % IVS Diastolic Thickness MM 0.6 cm 0.6 - 1.0 / 0.6 - 0.9 cm IVS Systolic Thickness MM 0.9 cm LVPW Diastolic Thickness MM 0.6 cm 0.6 - 1.0 / 0.6 - 0.9 cm LVPW Systolic Thickness MM 1.2 cm RV Diastolic Diameter MM 2.0 cm Aortic Annulus Diameter 2.5 cm LA Ao Ratio MM 1.2 MV E Point Septal Separation 0.3 cm DOPPLER AV Peak Velocity 134.0 cm/s LVOT Peak Velocity 68.0 cm/s MV Area PHT 3.9 cm squared Mitral E to A Ratio 1.0 MV E' Velocity 36.5 cm/s Mitral E to MV E' Ratio 7.5 Mitral E to LV E' Lateral Ratio 7.2 Mitral E to LV E' Septal Ratio 7.7 TR Peak Velocity 217.0 cm/s TR Peak Gradient 18.8 mmHg TV Peak E Velocity 54.0 cm/s Right Atrial Pressure 15.0 mmHg Pulmonary Artery Systolic Pressu 33.8 mmHg FINDINGS Left Ventricle Normal left ventricular size and systolic function with no diagnostic regional wall motion abnormalities. Left ventricular ejection fraction is estimated at 60 %. Right Ventricle Normal right ventricular size and systolic function. Right Atrium Normal right atrial size. Left Atrium Mildly increased left atrial size. Mitral Valve Thickened mitral valve. Moderate mitral valve regurgitation. Aortic Valve Structurally normal trileaflet aortic valve. No aortic valve stenosis. Tricuspid Valve Structurally normal tricuspid valve. Trace to mild tricuspid valve regurgitation. Pulmonic Valve Pulmonic valve not well visualized. Moderate pulmonary valve regurgitation. Pericardium No pericardial effusion. Aorta Aorta not well visualized. CONCLUSIONS 1. This is a technically very difficult study. 2. Normal left ventricular size and systolic function with no diagnostic regional wall motion abnormalities. Left ventricular ejection fraction is estimated at 60 %. 3. Moderate pulmonary valve regurgitation. 4. Moderate mitral valve regurgitation. 5. No prior similar studies to compare. Amarilis Smith MD (Electronically Signed) Final Date: 02 September 2020 17:42 S
--- NOTE | 2020-09-02 01:47 | CTR_ITS ---
PROCEDURE INFORMATION: Exam: CT Angiography Chest With Contrast Exam date and time: 09/02/2020 7:01 AM Age: 69 years old Clinical indication: Shortness of breath TECHNIQUE: Imaging protocol: Computed tomographic angiography of the chest with intravenous contrast. 3D rendering (Not supervised by radiologist): MIP and/or 3D reconstructed images were created by the technologist. Radiation optimization: All CT scans at this facility use at least one of these dose optimization techniques: automated exposure control; mA and/or kV adjustment per patient size (includes targeted exams where dose is matched to clinical indication); or iterative reconstruction. Contrast material: OMNI 350; Contrast volume: 51 ml; Contrast route: INTRAVENOUS (IV); COMPARISON: CR XR chest 1V portable [id number] 09/01/2020 9:00 PM RADIATION DOSE METRICS: Total DLP (mGy-cm): 356.18 FINDINGS: Pulmonary arteries: There is prominent dilatation of the central pulmonary arteries indicating pulmonary hypertension. Aorta: A few atherosclerotic calcifications are present in the aorta but there is no evidence of aortic aneurysm. Lungs: There is severe pulmonary emphysema. There is scattered pulmonary fibrosis. There is focal airspace consolidation in the superior segment of the right lower lobe consistent with pneumonia. There is also no other area of pleural-based consolidation in the posterior right upper lobe. This may be due to fibrosis or possibly another area of pneumonia. Correlation with clinical signs of pneumonia is advised. A short-term follow-up CT scan of the chest is advised in 3-4 months. Pleural space: Unremarkable. No pneumothorax. No pleural effusion. Heart: Heart is not enlarged. There is coronary artery calcification. Lymph nodes: Unremarkable. No enlarged lymph nodes. Gallbladder and bile ducts: There is dense sludge or small stones in the gallbladder. Intraperitoneal space: There is small volume ascites in the upper abdomen. Bones/joints: Unremarkable. No acute fracture. Soft tissues: Unremarkable. CT/CT angio chest PE protcl [id number] IMPRESSION: 1. No evidence of pulmonary embolus or aortic dissection. 2. Pulmonary hypertension. 3. Prominent pulmonary emphysema. 4. There are 2 areas of airspace consolidation in the right lower lobe and right upper lobe probably representing pneumonia but short-term follow-up CT scan is advised in 3-4 months. 5. Coronary disease. 6. Cholelithiasis. Radiation Dose CTDIVOL = (mGy): DLP = 356.18 (mGy-cm)
--- NOTE | 2020-09-02 01:47 | USR_ITS ---
PROCEDURE INFORMATION: Exam: US Abdomen, Limited; Right Upper Quadrant Exam date and time: 09/02/2020 1:50 AM Age: 69 years old Clinical indication: Condition or disease; Other: Thrombocytopenia TECHNIQUE: Imaging protocol: US abdomen. Real time ultrasound with image documentation. Limited exam focused on the right upper quadrant. COMPARISON: US gall bladder [id number] 08/20/2019 10:23 AM FINDINGS: Liver: Below the liver there is a well-defined simple cyst measuring about 5 cm in diameter. This was seen along the ascending colon old CT scan and appears benign. It may be related to old surgery or benign enteric cyst. Gallbladder: Multiple stones are present in the gallbladder. The gallbladder wall is not thickened. There is no pericholecystic fluid. Common bile duct: The common bile duct is mildly dilated to a diameter of 8.2 mm. Pancreas: Visualized pancreas is unremarkable. Right kidney: There are multiple stable benign cysts in the right kidney. There is mild heterogeneous echotexture of the right renal parenchyma which may indicate a medical renal disease. There is no hydronephrosis or shadowing stone. Left kidney: There is a small cystic structure near the tail the pancreas this is most likely a cyst on the superior pole of the left kidney which are seen on previous CT. Spleen: There is splenomegaly. This is unchanged. US/US liver [id number] IMPRESSION: 1. Cholelithiasis. 2. Mildly dilated bile duct at 8.2 mm. 3. Benign renal cysts. 4. Well-defined 5 cm simple cyst below the liver and previously seen adjacent to the colon. This may be related to old surgery or a benign enteric cyst. 5. Splenomegaly. COMMENTS: Consistent with the [employer]'s Incidental Findings Committee white paper (J Am Constantin Radiol 2018): Any incidental renal lesion less than 1 cm or classified as too small to characterize, or any incidental cystic renal lesion characterized as simple-appearing, is likely benign. No follow-up imaging is recommended for these lesions per consensus recommendations based on imaging criteria.
--- NOTE | 2020-09-02 02:02 | PC.NURSE ---
Patient transferred from ED. Arrived on unit at 0130 via gurney and transferred with 2 ED staff. Patient on 4L NC. NS and K-rider infusing via IV. Various stages of bruising noted to Left eye. When asked, patient stated that she can't remember what happened on how she obtained injury. Transferred via lift sheet by 4 nursing staff. Patient tolerated well. Patient oriented to room. Vital signs stable. Educated production support manager light usage. No needs verbalized by patient at this time.
[2020-09-02] MEDS: atorvastatin 40 mg Tablet PO (02:18)
[2020-09-02] MEDS: pantoprazole 40 mg SDV IVP (02:20)
[2020-09-02] MEDS: enoxaparin 40 mg/0.4 mL Syringe SUBCUT (02:20)
[2020-09-02] MEDS: sodium chloride 0.9% 1,000 ML 100 ML IV ×3 (02:23→23:54)
[2020-09-02 05:48] LABS: Hematocrit 31.2 % (37.0-47.0); Hemoglobin 10.3 g/dL (11.5-15.3); Lymphocytes # 1.1 10^3/uL (0.8-4.8); Lymphocytes % 29.3 %; Mean Corpuscular Hemoglobin 29.3 pg (28.0-34.0); Mean Corpuscular Volume 88.6 fL (81-99); Mean Platelet Volume 10.8 fL (7.4-10.4); Monocytes # 0.1 10^3/uL (0.2-0.9); Monocytes % 3.8 %; Neutrophils # 2.45 10^3/uL (1.8-7.7); Neutrophils % 66.6 %; Nucleated Red Blood Cells % 0 %; Platelet Count 87 10^3/cmm (130-400); Red Blood Count 3.52 10^6/uL (4.1-5.3); Red Cell Distribution Width 13.2 % (12.1-15.1); White Blood Count 3.7 10^3/uL (4.0-10.0)
[2020-09-02 05:58] LABS: Lactic Sepsis W/Reflex 0.7 mmol/L (0.5-2.2)
[2020-09-02 06:04] LABS: INR 1.14 (0.8-1.2)
[2020-09-02 06:17] LABS: Chol HDL Ratio 3.34 mg/dL (0.0-4.40); Cholesterol 127 mg/dL (0-200); HDL Cholesterol 38 mg/dL (60-100); LDL Cholesterol Calculated 67 mg/dL (50-129); LDL HDL Ratio 1.76 RATIO (0.00-3.22); Triglycerides 109 mg/dL (0-150)
[2020-09-02 06:26] LABS: Alanine Aminotransferase 25 U/L (0-33); Albumin Level 3.6 g/dL (3.5-5.2); Alkaline Phosphatase 45 IU/L (35-105); Aspartate Amino Transferase 63 U/L (0-32); Blood Urea Nitrogen 16 mg/dL (8-23); Calcium 7.8 mg/dL (8.5-10.5); Carbon Dioxide 27 mmol/L (22-29); Chloride 95 mmol/L (98-107); Creatinine Clr Calc Pharmacy 39.0904; Globulin 2.4 g/dL (1.3-4.6); Glomerular Filtration Rate 221.9 mL/min (90-130); Glucose 80 mg/dL (65-115); Osmolality Calculated 286 mOsm/kg (285-295); Phosphorus 2.7 mg/dL (2.5-4.5); Sodium 138 mmol/L (136-145); Thyroid Stimulating Hormone 0.45 uIU/mL (0.27-4.20); Total Bilirubin 0.9 mg/dL (0.15-1.2)
[2020-09-02 06:30] LABS: Anion Gap 19.5 (5-19)
[2020-09-02 06:31] LABS: Potassium 3.5 mmol/L (3.5-5.1)
[2020-09-02 06:36] LABS: Vitamin B12 794 pg/mL (232-1245)
[2020-09-02 06:43] LABS: HIV 1 & 2 Antibody Non-Reactive (Non-Reactiv); HIV 1 & 2 Antigen Non-Reactive (Non-Reactiv)
[2020-09-02 06:47] LABS: C Reactive Protein 3.6 mg/L (0.0-4.9); Erythrocyte Sedimentation Rate 17 mm/hr (0-15); Ferritin 373 ng/mL (15-150); Hepatitis A Antibody IgM Non-Reactive (Nonreactive); Hepatitis B Core IgM Non-Reactive (Nonreactive); Hepatitis B Surface Antigen Non-Reactive (Nonreactive); Hepatitis C Virus Antibody Reactive (Nonreactive)
--- NOTE | 2020-09-02 07:10 | PC.NURSE ---
Shift Summary: Shift Summary: Patient exhibits s/s of confusion/agitation. Easily reoriented back to time/place/situation. NS @100mL/hr Patient asks for personal belongings, but there was none that was brought down during transfer from ED. Patient often screams out Ezekiel , and states this to be her roommate. HR has fluctuated between 120's-140's and ST. Currently on 2L NC. SPO2 maintaining in high 90's Report given to oncdemetris dayshift RN.
[2020-09-02] MEDS: iohexol 350 mg/mL 100 mL Btl IV (07:59)
--- NOTE | 2020-09-02 08:00 | PC.NURSE ---
Pt alert to self and place. She has been incontinent of bladder and stool. Perineal care provided. Linen change provided. She has a slight nose bleed, cotton ball b=placed in right nostril. She went to CT. Cotton ball saturated. Dr Staples , here in unit, notified of nose bleed. Will continue to watch . Pt assisted back to bed, she complains of being fatigued and short of breath. Perse lip breathing encouraged. O2 at 4lpm/NC. Pt finally recovers. Per pt. she just wants to feel better and take a nap.
[2020-09-02] MEDS: albuterol 8 gm MDI 1 PUFF INHALATION ×5 (08:19→23:50)
[2020-09-02 08:52] LABS: LAB Peripheral Smear Sent for Review
--- NOTE | 2020-09-02 09:00 | PC.NURSE ---
This mornings Aspirin held until Dr Staples can review chart and round with pt, per Dr Goel.
[2020-09-02] MEDS: metoprolol tartrate 25 mg Tablet PO ×2 (09:10→18:36)
--- NOTE | 2020-09-02 09:41 | PC.OT ---
Attempted to see patient in a.m. nurse was preparing to administer beta michael, asked that therapy hold until later. Will attempt eval later.
[2020-09-02 09:57] LABS: Folate Level > 20.0 ng/mL (4.8-37.3)
--- NOTE | 2020-09-02 09:59 | PM.PN ---
Subjective Subjective: Interval history: Noted to be alert awake and oriented this morning. No further seizure episodes. T-max 100.5. Currently requiring 4 L/min nasal cannula Medications: Reviewed: Yes Vitals/I&O/Wt Last Vital Signs Temp 97.5 F L 09/02/20 05:00 Pulse 85 09/02/20 08:40 Resp 26 H 09/02/20 08:20 BP 134/101 09/02/20 08:40 Pulse Ox 98 09/02/20 08:40 09/01/20 09/02/20 09/02/20 22:59 06:59 14:59 Intake Total 1350 / 1350 1280 / 2630 Balance 1350 / 1350 1280 / 2630 Weight last 48 hrs Weight 36.287 kg Physical Exam Narrative: EXAM NARRATIVE: GEN: Awake, alert and oriented, no acute distress , chronically ill-appearing frail lady CVS: S1S2 N RS: CTA B/L Abd: Soft, nt/nd , bs+ INSURANCE ADVISER: no focal neuro deficits Data : 09/02/20 05:20 09/02/20 05:20 Micro: Microbiology 09/01/20 19:34 Blood Culture - Preliminary Blood SPECIMEN COLLECTED 09/01/20 19:34 Blood Culture - Preliminary Blood SPECIMEN COLLECTED A&P Assessment and plan (1) Encephalopathy: This is now resolved. Patient is alert awake and oriented, back to baseline. Suspect that this was more related to her postictal state. Alternate differentials include either opioid intoxication or withdrawal. No witnessed seizure since admission at the hospital. Urine drug screen positive for marijuana and benzodiazepines and opiates. Reviewed imaging of the chest, there does appear to be some right lower lobe infiltrate noted on CAT scan of the chest, however I do not appreciate a gross consolidation or significant air bronchograms. Possibility of aspiration cannot be excluded. Continue antibiotic coverage, however can narrow from imipenem to levofloxacin. Swallow evaluation prior to starting diet Liver ultrasound makes note of possible CBD dilatation, however patient does not have any right upper quadrant tenderness, LFTs are within normal range, clinical picture less consistent with cholecystitis. Evaluate with HIDA scan once available on Friday. UA with negative nitrate and leuk esterase, bacteria positive, overall less consistent with UTI Status: Acute (2) Aspiration pneumonia: Status: Acute Qualifiers: Aspiration pneumonia type: unspecified Laterality: unspecified laterality Lung location: unspecified part of lung Qualified Code(s): J69.0 - Pneumonitis due to inhalation of food and vomit (3) Heavy cigarette smoker: Status: Acute (4) Narcotic abuse, continuous: Status: Acute (5) Chronically ill: Status: Acute (6) Anxiety: Status: Acute (7) Emphysema/COPD: Continue inhalers and steroids Status: Acute Qualifiers: Emphysema type: unspecified Qualified Code(s): J43.9 - Emphysema, unspecified (8) Caloric malnutrition: Status: Acute (9) Sinus tachycardia: Status: Acute (10) Acute respiratory failure: Status: Acute Qualifiers: Respiratory failure complication: unspecified whether with hypoxia or hypercapnia Qualified Code(s): J96.00 - Acute respiratory failure, unspecified whether with hypoxia or hypercapnia (11) Grand mal seizure: CT head no acute findings, neurochecks, aspiration precautions, Keppra 750 twice daily Status: Acute (12) Thrombocytopenia: -Etiology unclear, platelet count 92, chronic thrombocytopenia -Order right upper quadrant ultrasound, hepatitis panel, blood alcohol -HIV screen negative Reports past history of treated hep C, hep C antibody reactive. Tick panel added. 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
--- NOTE | 2020-09-02 10:30 | PC.NURSE ---
Pt verbally gave permission to speak to her daughter, Annamaria Ramirez and her room mate Priya Kasper about her care. Her daughter called t check on her, gave her an update on pt's condition. Annamaria asked if pt was going to make it , will she recover from the stroke and her brain injury ? Explained to daughter that pt did not have a brain injury nor stroke she had altered mental status which has improved.
--- NOTE | 2020-09-02 12:25 | PC.PT ---
Per OT attempt, patient had just been given beta blockers and patient still confused so therapy on hold for today. Will attempt tomorrow (Friday).
--- NOTE | 2020-09-02 19:16 | PC.NURSE ---
Rin summary: Pt is much more alert and oriented. She had a CT of chest this am. Echo cardiogram and swallow evals completed. Pt has a purple bruise around her left eye, a bruise on her left neck and shoulder. No complaints of pain noted today. Pt stated she needs to get better. Pt has been shown and demonstrated use of call light multiple times, she still yells out. Pt was sinus tach this am, her scheduled metoprolol resolved this. Iv in left AC remains patent and draws blood. She is now on 3lpm/NC. She uses the BSC. She was incontinent this am but this has improved through the day as she became more oriented. She has have several small loose BMs.
[2020-09-03] VITALS (9 sets, daily range): BP systolic 122–138; BP diastolic 68–91; PULSE 58–84; RESP 20–30; TEMP 36.9; O2SAT 96–99
--- NOTE | 2020-09-03 01:28 | PC.NURSE ---
New Order: V/O for C-Diff PCR given by MD Verenice production broacher.
[2020-09-03] MEDS: pantoprazole 40 mg SDV IVP (01:43)
[2020-09-03] MEDS: ondansetron 2 mg/ML SDV 2 mL 4 MG IVP (01:46)
[2020-09-03 04:35] LABS: Hemoglobin 8.6 g/dL (11.5-15.3); Lymphocytes # 0.7 10^3/uL (0.8-4.8); Lymphocytes % 35.3 %; Mean Corpuscular HGB Conc 31.9 g/dL (30.0-36.0); Mean Corpuscular Hemoglobin 29.4 pg (28.0-34.0); Mean Corpuscular Volume 92.2 fL (81-99); Mean Platelet Volume 10.3 fL (7.4-10.4); Monocytes # 0.1 10^3/uL (0.2-0.9); Monocytes % 4.8 %; Neutrophils # 1.11 10^3/uL (1.8-7.7); Neutrophils % 59.4 %; Nucleated Red Blood Cells % 0 %; Platelet Count 59 10^3/cmm (130-400); Red Blood Count 2.93 10^6/uL (4.1-5.3); Red Cell Distribution Width 13.7 % (12.1-15.1); White Blood Count 1.9 10^3/uL (4.0-10.0)
[2020-09-03] MEDS: albuterol 8 gm MDI 1 PUFF INHALATION ×2 (04:37→07:57)
[2020-09-03 04:48] LABS: INR 1.21 (0.8-1.2)
[2020-09-03 04:54] LABS: Alanine Aminotransferase 21 U/L (0-33); Albumin Level 3.3 g/dL (3.5-5.2); Alkaline Phosphatase 38 IU/L (35-105); Anion Gap 13.5 (5-19); Aspartate Amino Transferase 40 U/L (0-32); Blood Urea Nitrogen 21 mg/dL (8-23); Calcium 7.9 mg/dL (8.5-10.5); Carbon Dioxide 27 mmol/L (22-29); Chloride 104 mmol/L (98-107); Creatinine Clr Calc Pharmacy 39.0904; Glomerular Filtration Rate 123.1 mL/min (90-130); Glucose 86 mg/dL (65-115); Magnesium 1.8 mg/dL (1.7-2.3); Osmolality Calculated 294 mOsm/kg (285-295); Potassium 3.5 mmol/L (3.5-5.1); Sodium 141 mmol/L (136-145); Total Bilirubin 0.6 mg/dL (0.15-1.2); Total Protein 5.3 g/dL (6.6-8.7)
[2020-09-03] MEDS: levoFLOXacin 750 mg Tablet PO (06:17)
--- NOTE | 2020-09-03 06:39 | PC.NURSE ---
Shift Summary: Patient oriented majority of shift. One episode noted of confusion, but was easily able to be reoriented back to person/place/situation. Patient refuses to take anything by mouth for nightshift RN. She states she is getting enough intake by the infusing IV fluids. Patient has c/o pain throughout shift. Repositioning and instructional deep breathing exercises led by RN, have been effective in calming patient. She has a fear of starting withdrawal at any moment. Patient daughter phoned during the overnight hours. Patient approved for daughter, Annamaria Ramirez, to receive personal medical Hx and information. Daughter Annamaria questioned RN if her mother was going to need to have brain surgery. RN communicated that she was unsure, but felt that probably was not the need at this point. Patient also states she would like to receive both Flu and Pneumonia vaccines during hospital stay. Verbalized that she probably has not had either one of them within the last 10 years. Numerous episodes of incontinence of stool and urine throughout shift. Various stages of bruising found throughout body. Patient states that she fell a few days ago, and was knocked out . She also states she was on a 7 day yap of Valium , and eating them like candy . NS infusing at 100mL. Report given to oncoming dayshift RN. No needs verbalized by patient at this time.
[2020-09-03] MEDS: acetaminophen 325 mg Tablet 650 MG PO (09:25)
[2020-09-03] MEDS: metoprolol tartrate 25 mg Tablet PO (09:25)
--- NOTE | 2020-09-03 09:28 | PC.NURSE ---
Pt a questioned about her activity at home. She stated she did not get up and move around much. When asked, then where do you get the morphine, she stated her roommate goes out and gets it for her when she sends him out for it.
--- NOTE | 2020-09-03 09:57 | PM.DCS ---
Discharge Providers Date of Admission: 09/01/20 22:54 Date of Discharge: September 03, 2020 Attending Provider at Admission: Serjio Caldera MD Attending Provider at Discharge: Estefani Staples MD Primary Care Provider: ARRON Alvarez Diagnoses at Discharge Discharge Diagnosis (1) Encephalopathy: Status: Acute (2) Aspiration pneumonia: Status: Acute Qualifiers: Aspiration pneumonia type: unspecified Laterality: unspecified laterality Lung location: unspecified part of lung Qualified Code(s): J69.0 - Pneumonitis due to inhalation of food and vomit (3) Heavy cigarette smoker: Status: Acute (4) Narcotic abuse, continuous: Status: Acute (5) Chronically ill: Status: Acute (6) Anxiety: Status: Acute (7) Emphysema/COPD: Status: Acute Qualifiers: Emphysema type: unspecified Qualified Code(s): J43.9 - Emphysema, unspecified (8) Caloric malnutrition: Status: Acute (9) Sinus tachycardia: Status: Acute (10) Acute respiratory failure: Status: Acute Qualifiers: Respiratory failure complication: unspecified whether with hypoxia or hypercapnia Qualified Code(s): J96.00 - Acute respiratory failure, unspecified whether with hypoxia or hypercapnia (11) Grand mal seizure: Status: Acute (12) Thrombocytopenia: Status: Acute Reason for Visit Reason for Visit: AMS/ SEIZURE LAST NIGHT Hospital Course Discharge Summary: Maddy Crowley is a 69 year old female with a past medical history of COPD, on 2 L, chronic pain on intermittent narcotics, history of drug abuse in the past, active smoker, chronic malnutrition, cachexia, chronic thrombocytopenia, who presents to [facility] due to altered mental status. This was initially thought to be related to septic encephalopathy, however given quick recovery even prior to initiation of antibiotics, this is more likely to be related to her recent seizures and possibly postictal state. Substance intoxication and/or withdrawal could not be excluded as a possibility either. She underwent a CT of the chest which showed a possible pneumonia, however I am unable to appreciate any air bronchograms, aspiration still remains a possibility for her. She is being discharged today on levofloxacin to complete a course of 5 days total duration. Note is also made of chronic leukopenia and thrombocytopenia for which she is encouraged to follow-up as outpatient with hematology oncology, referral has been provided. At the time of discharge patient is alert awake oriented, back to her baseline, no concerning signs of sepsis at this time. Liver function is normal. There is no right upper quadrant tenderness, highly doubt acute cholecystitis or cholangitis. 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 Discharge Data Data Completed and Pending: Completed Studies During Hospitalization Category Date Time Status CT angio chest PE protcl [id number] Urge nt Cat Scan 09/02/20 01:[address] head wo con* [id number] Stat Cat Scan 09/01/20 14:49 Completed XR chest 1V glen ble [id number] Stat Exams 09/01/20 20:47 Completed CV echo complete* [id number] Routine Ultrasound 09/02/20 01:47 Com[place] liver [id number] Ro utine Ultrasound 09/02/20 01:47 Completed Pending at discharge Category Date Time Status Blood Culture Sta t Lab 09/01/20 19:34 Results Complete Blood Co unt w/Auto AM LABS Lab 09/04/20 04:00 Ordered Comprehensive Met abolic Panel AM LA BS Lab 09/04/20 04:00 Ordered Coronavirus Lab T est PTC Routine Lab 09/01/20 22:24 Received Magnesium AM LABS Lab 09/04/20 04:00 Ordered Phosphorus AM LAB S Lab 09/04/20 04:00 Ordered Prothrombin Time INR AM LABS Lab 09/04/20 04:00 Ordered Sputum Culture an d Gram Stain Stat Lab 09/02/20 01:47 Uncollected Tick Panel Routin e Lab 09/02/20 12:07 Received Urine Culture Sta t Lab 09/01/20 18:47 Results NM hepatobiliary w phar* [id number] Rout ine Nuc Med 09/02/20 09:59 Ordered Labs from last 24 hours 09/03/20 09/03/20 09/03/20 04:07 04:07 04:07 WBC 1.9 L RBC 2.93 L Hgb 8.6 L Hct 27.0 L MCV 92.2 MCH 29.4 MCHC 31.9 RDW 13.7 Plt Count 59 L MPV 10.3 Neut % (Auto) 59.4 Lymph % (Auto) 35.3 [place] % (Auto) 4.8 Eos % (Auto) 0.0 Baso % (Auto) 0.0 Reticulocyte % (Au to) Neut # (Auto) 1.11 L Lymph # (Auto) 0.7 L [place] # (Auto) 0.1 L Eos # (Auto) 0.0 Baso # (Auto) 0.0 Nucleated RBC % (a uto) 0 Nucleated RBCs # 0.0 PT 15.80 H INR 1.21 H Sodium 141 Potassium 3.5 Chloride 104 Carbon Dioxide 27 Anion Gap 13.5 BUN 21 Creatinine 0.5 GFR Calculation 123.1 Glucose 86 Calculated Osmolal ity 294 Calcium 7.9 L Phosphorus 3.0 Magnesium 1.8 Total Bilirubin 0.6 AST 40 H ALT 21 Alkaline Phosphata se 38 Total Protein 5.3 L Albumin 3.3 L Globulin 2.0 Folate Lyme Ab (Western B lot) E. chaffeensis IgG Ab E. chaffeensis IgM Ab E. chaffeensis Int erp E. chaffeensis Com ment Hepatitis C Antibo dy Rickettsia IgG Ab Rickettsia IgM Ab 09/02/20 09/02/20 09/02/20 12:07 12:07 05:20 WBC RBC Hgb Hct MCV MCH MCHC RDW Plt Count MPV Neut % (Auto) Lymph % (Auto) [place] % (Auto) Eos % (Auto) Baso % (Auto) Reticulocyte % (Au to) 2.9100 Neut # (Auto) Lymph # (Auto) [place] # (Auto) Eos # (Auto) Baso # (Auto) Nucleated RBC % (a uto) Nucleated RBCs # PT INR Sodium Potassium Chloride Carbon Dioxide Anion Gap BUN Creatinine GFR Calculation Glucose Calculated Osmolal ity Calcium Phosphorus Magnesium Total Bilirubin AST ALT Alkaline Phosphata se Total Protein Albumin Globulin Folate > 20.0 Lyme Ab (Western B lot) Pending E. chaffeensis IgG Ab Pending E. chaffeensis IgM Ab Pending E. chaffeensis Int erp Pending E. chaffeensis Com ment Pending Hepatitis C Antibo dy Rickettsia IgG Ab Pending Rickettsia IgM Ab Pending 09/02/20 05:20 WBC RBC Hgb Hct MCV MCH MCHC RDW Plt Count MPV Neut % (Auto) Lymph % (Auto) [place] % (Auto) Eos % (Auto) Baso % (Auto) Reticulocyte % (Au to) Neut # (Auto) Lymph # (Auto) [place] # (Auto) Eos # (Auto) Baso # (Auto) Nucleated RBC % (a uto) Nucleated RBCs # PT INR Sodium Potassium Chloride Carbon Dioxide Anion Gap BUN Creatinine GFR Calculation Glucose Calculated Osmolal ity Calcium Phosphorus Magnesium Total Bilirubin AST ALT Alkaline Phosphata se Total Protein Albumin Globulin Folate Lyme Ab (Western B lot) E. chaffeensis IgG Ab E. chaffeensis IgM Ab E. chaffeensis Int erp E. chaffeensis Com ment Hepatitis C Antibo dy Reactive H Rickettsia IgG Ab Rickettsia IgM Ab Vitals: Last Vital Signs Temp 98.4 F 09/03/20 08:04 Pulse 74 09/03/20 08:04 Resp 21 H 09/03/20 08:04 BP 127/68 09/03/20 08:04 Pulse Ox 98 09/03/20 08:04 Discharge Plan Discharge Patient Disposition: Home Condition: Stable Prescriptions: New Tashia Allergy 60 mg tablet 120 mg PO BID PRN (Reason: allergy symptoms) 5 Days RF: 0 levofloxacin 750 mg tablet 750 mg PO DAILY 5 Days RF: 0 Continued albuterol sulfate [Ventolin HFA] 90 mcg/actuation HFA aerosol inhaler 2 puff INHALATION Q6H PRN (Reason: shortness of breath or wheezing) Qty: 6.7 RF: 3 metoprolol tartrate 25 mg tablet 25 mg PO BID 30 Days Qty: 60 RF: 5 sumatriptan succinate [Imitrex] 50 mg tablet 50 mg PO Q2H PRN (Reason: migraine headache) Qty: 15 RF: 0 cetirizine 10 mg tablet 10 mg PO DAILY PRN (Reason: allergy symptoms) Qty: 30 RF: 2 Discontinued cyproheptadine 4 mg tablet 4 mg PO BID Qty: 60 RF: 1 Discharge Orders: Discharge Order (Routine); Ordered 09/03/20 Ordered By: Estefani Staples Referrals: Horace Zhong FNP [Primary Care Provider] - 4-7 days (please make an appt with Horace Zhong [phone] 4-7 days) Valdemar Solomon MD [Hospitalist] - 7-10 days (pancytopenia please make an appt with Dr Solomon [phone] 7to 10 days) Discharge Diet: Usual diet Discharge Activity: Resume usual activity Patient Instructions: Fexofenadine (By mouth), Levofloxacin (By mouth), Acute Delirium (DC) Discharge Date/Time: 09/03/20 11:40 Discharge Attestations Time Spent in Discharge Care*: greater than 30 min Specific Discharge Activities: Specific discharge activities: educating patient, documenting/other paperwork and evaluating patient/reviewing data Quality Metrics Clinical Quality Measures During this hospital stay, did patient experience: None Coding Level of Care Code Acute Ecotherapist for [facility] Fwd Diagnoses Encephalopathy G93.40 Aspiration pneumonia J69.0 Aspiration pneumonia type: unspecified Laterality: unspecified laterality Lung location: unspecified part of lung Heavy cigarette smoker F17.210 Narcotic abuse, continuous F11.10 Chronically ill R69 Anxiety F41.9 Emphysema/COPD J43.9 Emphysema type: unspecified Caloric malnutrition E46 Sinus tachycardia R00.0 Acute respiratory failure J96.00 Respiratory failure complication: unspecified whether with hypoxia or hypercapnia Grand mal seizure G40.409 Thrombocytopenia D69.6
--- NOTE | 2020-09-03 11:35 | PC.NURSE ---
Discharge packet provided and discussed. Follow-up appt. with Dr Solomon and Jane Owen DRYING AND WINDING SUPERVISOR to be made tomorrow by pt., as today is Friday. New medications Fexofenadine and Levofloxacin discussed. Pt educated on the importance of finishing the antibiotic an the importance of taking her metoprolol for her heart. Pt discharged.
--- NOTE | 2020-09-03 11:42 | PC.NURSE ---
Pt to front entrance via W/C with O2. Significant other , Mykel, met pt with her personal O2.
[2020-09-03 18:36] LABS: Coronavirus Lab Test PTC Negative
[2020-09-04 11:57] LABS: Lyme AB Screen <0.90 index
--- NOTE | 2020-09-04 18:06 | PC.RESP ---
Smoking Cessation and Pulmonary Rehab information sent to patient.
[2020-09-06 15:57] LABS: E. Chaffeensis AB IGG <1:64; E. Chaffeensis AB IGM <1:20
[2020-09-07 13:28] LABS: RMSF IGG NOT DETECTED; RMSF IGM NOT DETECTED
[2020-09-11 11:20] LABS: Miscellaneous Test See Scanned Lab Rpt
== END 2020-09-03 11:40 | disposition home or self-care (01) | DRG 70 ==
LOC: ER 22:09 → ICU 23:34
PROVIDERS: Emergency Medicine; Family Medicine; Admitting Provider Family Medicine; PCP Registered Nurse; Visit Provider Student in an Organized Health Care Education/Training Program
DX: G93.40 Encephalopathy, unspecified (principal); J69.0 Pneumonitis due to inhalation of food and vomit; I21.4 Non-ST elevation (NSTEMI) myocardial infarction; J96.00 Acute respiratory failure, unspecified whether with hypoxia or hypercapnia; N39.0 Urinary tract infection, site not specified; E46 Unspecified protein-calorie malnutrition; Z68.1 Body mass index [BMI] 19.9 or less, adult; J43.9 Emphysema, unspecified; Z99.81 Dependence on supplemental oxygen; G89.29 Other chronic pain; F17.210 Nicotine dependence, cigarettes, uncomplicated; D69.6 Thrombocytopenia, unspecified; F41.9 Anxiety disorder, unspecified; F11.10 Opioid abuse, uncomplicated; R00.0 Tachycardia, unspecified; G40.409 Other generalized epilepsy and epileptic syndromes, not intractable, without status epilepticus; Z79.51 Long term (current) use of inhaled steroids
CPT/HCPCS: 12345; 36415; 36600; 70450; 71045; 71275; 76705; 80053; 80061; 80074; 80306; 80307; 80500; 81001; 82550; 82607; 82728; 82746; 82803; 83605; 83735; 84100; 84145; 84443; 84484; 85025; 85045; 85610; 85651; 85730; 86140; 86403; 86618; 86666; 86757; 87040; 87086; 87426; 87449; 87493; 87635; 87804; 87806; 92610; 93005; 93306; 94640; 96372; 96375; 97161; 97167; 99284; C9113; J0743; J1650; J1953; J2060; J2405; J2920; J3370; J3475; J3480; J3535; J7030; J7050; Q9967